=== PATIENT | male | born 1955 | race Caucasian/White ===

== ENCOUNTER 2019-08-18 23:20 | Observation (INO) | payer MEDICARE, SELFPAY ==
--- NOTE | ~2019-08-18 | XR_ITS ---
EXAMINATION: XR lumbar spine 2-3V DATE: 08/19/2019 13:31 INDICATION: Back pain and unable to bear weight TECHNIQUE: Anteroposterior and lateral views of the lumbar spine, and cone-down lateral view of the l umbosacral junction were obtained. COMPARISON: None. FINDINGS: Hypoplastic bilateral riblets at T12 and partially sacralized S1 segment. Alignment is normal. Verteb ral body heights are normal. Mild disc height loss at L4-L5. Mild degenerative endplate osteophytes w ith relatively preserved disc spaces at T12-L1 and L1-L2. Mild lumbar facet osteoarthritis. Sacrum an d bilateral sacral iliac joints are unremarkable. Normal bowel gas pattern. IMPRESSION: 1. Minimal to mild lumbar spondylosis. No acute osseous abnormality. Reviewed, dictated and finalized at location A.
[2019-08-18 23:38] VITALS: BP 144/88; PULSE 58; RESP 18; TEMP 37.1; O2SAT 96
--- NOTE | 2019-08-18 23:57 | ED.BACK ---
HPI - Back Pain/Injury General Chief Complaint: Back Pain/Injury Stated Complaint: Lower Back pain Source: patient Mode of arrival: EMS Limitations: no limitations History of Present Illness HPI Narrative: 64 y.o. male with CAD, HTN, hyperlipidemia, GERD, depression and anxiety was getting into his truck at 3:30 PM today, 8.5 hours ago, when he experienced a severe, tearing sensation in his lower back. He was able to drive home and go to bed. Pain kept him from getting out of bed. EMS assisted him to get up and onto the transport cart. His pain is #6/10 when not moving. It goes up much higher with any movement. Laying still on his back or side decreases the pain. He denies other associated symptoms. The pain radiates down the back of both thighs, not quite as far as the knees. He has not numbness or weakness in his lower extremities. He has urinated since the injury. He's had similar episodes in the past, the last time was several years ago. He's never gone to the doctor for it before. He took Tylenol after the injury with some improvement. There is no hx of cancer or fever/chills. Related Data Home Medications Medication Instructions Recorded Confirmed aripiprazole 2 mg PO DAILY 08/18/19 08/18/19 aspirin 81 mg PO DAILY 08/18/19 08/18/19 atorvastatin 40 mg PO DAILY 08/18/19 08/18/19 bupropion HCl 150 mg PO DAILY 08/18/19 08/18/19 carvedilol 6.25 mg PO BID 08/18/19 08/18/19 clonazepam 0.5 mg PO HS 08/18/19 08/18/19 clopidogrel 75 mg PO DAILY 08/18/19 08/18/19 escitalopram oxalate 20 mg PO DAILY 08/18/19 08/18/19 lisinopril 5 mg PO DAILY 08/18/19 08/18/19 pantoprazole 40 mg PO DAILY 08/18/19 08/18/19 prazosin 4 mg PO HS 08/18/19 08/18/19 spironolactone 25 mg PO DAILY 08/18/19 08/18/19 tamsulosin 0.4 mg PO DAILY 08/18/19 08/18/19 Allergies Allergy/AdvReac Type Severity Reaction Status Date / Time codeine Allergy Unknown Verified 05/19/20 23:37 Review of Systems Constitutional: Constitutional: Reports no additional constitutional complaints, Denies chills and Denies fever(s) ENT: Denies nasal congestion and Denies sore throat Cardiovascular: Cardiovascular: Denies chest pain Respiratory: Respiratory: Denies cough and Denies dyspnea Gastrointestinal: Gastrointestinal: Denies diarrhea, Denies nausea and Denies vomiting Genitourinary: Genitourinary: Denies urinary incontinence Musculoskeletal: Musculoskeletal: Reports no additional musculoskeletal complaints Integumentary/Breasts: Skin/Breast: Denies rash Neurologic: Denies numbness Psychiatric: Psychiatric: Denies anxiety and Denies depression [facility] Past Medical History Medical History (Updated 08/19/19 @ 00:28 by Paulino Grimes MD) Anxiety Depression GERD (gastroesophageal reflux disease) Hyperlipidemia Hypertension Myocardial infarction Surgical History Surgical History (Updated 08/19/19 @ 00:14 by Paulino Grimes MD) History of vasectomy Family History Family History (Updated 08/19/19 @ 00:16 by Paulino Grimes MD) Mother Diabetes mellitus Father Cancer Social History Social History (Updated 08/19/19 @ 00:17 by Paulino Grimes MD) Smoking status: Never smoker Tobacco type: pipe Alcohol intake: current Drinks per week: 1 Alcohol use details: social, 1 -2 drinks, several times/month. Substance use: never Living arrangements: alone Gender identity (if verbalized by the patient): Male Spiritual care concerns: No Exam Narrative: Exam Narrative: Brought in by ambulance. Difficulty transferring to hospital stretcher secondary to pain. Const: Orientation/consciousness: patient oriented x3 Other: Appears in pain. Chest: Chest palpation & inspection: normal inspection of the chest Resp: Effort & Inspection: normal respiratory effort Cardio: Rate: regular rate Rhythm: regular rhythm GI: Inspection: non-distended Other: nontender : General: Yes no CVA tenderness Male General Exam: Yes jose de jesus
[2019-08-18] MEDS: CYCLOBENZAPRINE HCL 10 MG TABLET PO (23:59)
[2019-08-19 00:29] VITALS: BP 150/90; PULSE 89; RESP 20; TEMP 36.4; O2SAT 98
--- NOTE | 2019-08-19 00:56 | PC.NURSE ---
0045 Attempted to assist pt. out of bed to w/c for d/c home. Pt. unable to lift self from bed or even move to try to bear wt. Pt. shaking/trembling in pain and unable to move safely. ERP to write orders for 23 hr. obs. and PT eval in am.
--- NOTE | 2019-08-19 01:20 | ADMGEN ---
This patient, Irving Torres, was admitted to 2nd Floor Room 226-2. Patient oriented to hospital policies and general routines including ID bracelet, bed and alarms, visiting hours, pain management, procedures, bathroom and other care routines, personal items, smoking policy, room service/diet, and visiting hours. Valuables list has been completed. Information on how to activate the Rapid Response Team has been discussed. Patient encouraged to report perceived risks to care and to ask questions if they do not understand what they are told or what they should do.
[2019-08-19 01:25] VITALS: BMI 39.8
[2019-08-19 01:30] VITALS: BP 157/84; PULSE 49; RESP 18; TEMP 36.6; O2SAT 94
[2019-08-19 01:57] VITALS: RESP 18
--- NOTE | 2019-08-19 02:13 | PC.NURSE ---
Patricia from [facility] pharmacy called and stated she will wait to verify the Lovenox until after morning labs to ensure kidney function. she is waiting to verify Prazosin because the pt is also on Tamulosin and both meds are in the same class.
--- NOTE | 2019-08-19 02:40 | PC.NURSE ---
pt sleeping, respirations even and regular, no evidence of distress noted at this time
--- NOTE | 2019-08-19 03:58 | PC.NURSE ---
pt sleeping, no evidence of distress noted
[2019-08-19] MEDS: CYCLOBENZAPRINE HCL 10 MG TABLET PO ×3 (05:30→21:04)
[2019-08-19 05:33] LABS: Basophils Absolute Auto 0.02 K/mm3 (0.00-0.10); Basophils Percent Auto 0.3 % (0.0-1.0); Eosinophils Absolute Auto 0.19 K/mm3 (0.02-0.50); Eosinophils Percent Auto 2.6 % (1.0-6.0); Hematocrit 40.6 % (40.0-54.0); Immature Granulocyte Absolute 0.03 K/mm3 (0.00-0.00); Immature Granulocyte Percent A 0.4 % (0.0-0.0); Lymphocytes Absolute Auto 2.04 K/mm3 (1.10-4.50); Lymphocytes Percent Auto 28.3 % (18.0-42.0); Mean Corpuscular HGB Conc 34.5 g/dL (32.0-36.0); Mean Corpuscular Hemoglobin 29.9 pg (27.0-31.0); Mean Corpuscular Volume 86.8 fL (78.0-102.0); Mean Platelet Volume 8.9 fl (8.7-11.0); Monocytes Absolute Auto 0.54 K/mm3 (0.10-0.90); Monocytes Percent Auto 7.5 % (2.0-11.0); Neutrophils Absolute Auto 4.4 K/mm3 (1.7-7.2); Neutrophils Percent Auto 60.9 % (50.0-70.0); Platelet Count Result 176 K/mm3 (150-420); Red Blood Count 4.68 M/mm3 (4.70-6.10); Red Cell Distribution Width 12.6 % (11.6-14.4); White Blood Count 7.2 K/mm3 (4.8-10.8)
[2019-08-19 05:41] LABS: Anion Gap 11.5 mmol/L (7-16); Blood Urea Nitrogen 15 mg/dL (7-18); Calcium 8.2 mg/dL (8.5-10.1); Carbon Dioxide 28 mmol/L (21-32); Chloride 110 mmol/L (98-108); Estimated CRCL calculation 87 ml/min; Estimated Glomerular Filt Rate > 60; Glucose 105 mg/dL (70-99); Magnesium 1.8 mg/dL (1.8-2.4); Osmolality Calculated 302 mOsm/kg (285-295); Potassium 3.5 mmol/L (3.5-5.1); Sodium 146 mmol/L (136-145)
--- NOTE | 2019-08-19 05:48 | PC.NURSE ---
pt resting in bed, denies need for any pain medication at this time.
[2019-08-19 06:34] LABS: Erythrocyte Sedimentation Rate 5 mm/hr (0-20)
[2019-08-19 07:24] VITALS: BP 140/80; PULSE 54; RESP 14; TEMP 36.4; O2SAT 95
[2019-08-19] MEDS: carvediloL 6.25 MG TABLET PO (08:01)
[2019-08-19] MEDS: ESCITALOPRAM OXALATE 10 MG TABLET 20 MG PO (08:02)
[2019-08-19] MEDS: PANTOPRAZOLE 40 MG TABLET PO (08:02)
[2019-08-19] MEDS: SPIRONOLACTONE 25 MG TABLET PO (08:02)
[2019-08-19] MEDS: lisinopriL 5 MG TABLET PO (08:02)
[2019-08-19] MEDS: CLOPIDOGREL BISULFATE 75 MG TABLET PO (08:03)
[2019-08-19] MEDS: ATORVASTATIN 40 MG TABLET PO (08:03)
[2019-08-19] MEDS: ENOXAPARIN 40 MG/0.4 ML SYRINGE SUB-Q (08:03)
[2019-08-19] MEDS: TAMSULOSIN HCL 0.4 MG CAPSULE PO (08:03)
[2019-08-19] MEDS: ASPIRIN 81 MG ENTERIC TABLET PO (08:04)
[2019-08-19] MEDS: buPROPion HCL XL (24 HR) 150 MG TABCR PO (08:20)
[2019-08-19] MEDS: ARIPIPRAZOLE 2 MG TABLET PO (10:43)
--- NOTE | 2019-08-19 10:47 | PHAR ---
08/19/19: VERIFIED WITH [facility] PT TAKES BOTH PRAZOSIN AND TAMSULOSIN, AND DOSE OF ARIPRAZOLE IS 2MG DAILY. TLS
[2019-08-19] MEDS: KETOROLAC 30 MG/ML VIAL (*BKC) (12:48)
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
--- NOTE | 2019-08-19 13:14 | PC.NURSE ---
Patient to xray per stretcher for xrays of lumbar spine.
[2019-08-19 13:59] LABS: Prostate Specific Antigen 6.3 ng/mL (< OR = 4.0)
[2019-08-19] MEDS: methylPREDNISolone SOD SUCC 125 MG VIAL IV PUSH (14:29)
[2019-08-19 16:00] VITALS: BP 155/81; PULSE 51; RESP 18; TEMP 37.1; O2SAT 93
--- NOTE | 2019-08-19 20:39 | PC.NURSE ---
pt appears to be sleeping, no s/sx of distress at this time, breathing calm and unlabored
[2019-08-19] MEDS: CLONAZEPAM 0.5 MG TAB PO (21:03)
[2019-08-19] MEDS: PRAZOSIN HCL 1 MG CAPSULE 4 MG PO (21:03)
[2019-08-19 21:06] VITALS: PULSE 51
--- NOTE | 2019-08-19 21:08 | PC.NURSE ---
pt awake , resting in bed, no s/sx of distress, pt declines any pain medicine at this time, dr notified of carvedilol being held for low pulse
[2019-08-20] VITALS: BP 131/77; PULSE 57; RESP 18; TEMP 37.6; O2SAT 95
[2019-08-20] MEDS: CYCLOBENZAPRINE HCL 10 MG TABLET PO (05:21)
[2019-08-20 05:31] LABS: Hemoglobin 13.7 g/dL (14.0-18.0); Mean Corpuscular HGB Conc 34.3 g/dL (32.0-36.0); Mean Corpuscular Hemoglobin 29.8 pg (27.0-31.0); Mean Corpuscular Volume 87.1 fL (78.0-102.0); Mean Platelet Volume 9.3 fl (8.7-11.0); Platelet Count Result 188 K/mm3 (150-420); Red Blood Count 4.59 M/mm3 (4.70-6.10); Red Cell Distribution Width 12.5 % (11.6-14.4); White Blood Count 11.6 K/mm3 (4.8-10.8)
[2019-08-20 05:46] LABS: Alanine Aminotransferase 20 U/L (16-63); Albumin Level 3.2 g/dL (3.4-5.0); Alkaline Phosphatase 73 U/L (46-116); Anion Gap 12.9 mmol/L (7-16); Aspartate Amino Transferase 14 U/L (15-37); Bilirubin,Total 0.5 mg/dL (0.00-1.00); Blood Urea Nitrogen 28 mg/dL (7-18); Calcium 8.7 mg/dL (8.5-10.1); Carbon Dioxide 26 mmol/L (21-32); Chloride 110 mmol/L (98-108); Estimated CRCL calculation 77 ml/min; Estimated Glomerular Filt Rate > 60; Glucose 151 mg/dL (70-99); Osmolality Calculated 308 mOsm/kg (285-295); Potassium 3.9 mmol/L (3.5-5.1); Sodium 145 mmol/L (136-145); Total Protein 6.1 g/dL (6.4-8.2)
[2019-08-20 07:45] VITALS: BP 127/69; PULSE 64; RESP 18; TEMP 37; O2SAT 95
[2019-08-20] MEDS: ENOXAPARIN 40 MG/0.4 ML SYRINGE SUB-Q (09:30)
[2019-08-20 09:31] VITALS: PULSE 64
[2019-08-20] MEDS: ASPIRIN 81 MG ENTERIC TABLET PO (09:31)
[2019-08-20] MEDS: CLOPIDOGREL BISULFATE 75 MG TABLET PO (09:31)
[2019-08-20] MEDS: TAMSULOSIN HCL 0.4 MG CAPSULE PO (09:31)
[2019-08-20] MEDS: buPROPion HCL XL (24 HR) 150 MG TABCR PO (09:31)
[2019-08-20] MEDS: carvediloL 6.25 MG TABLET PO (09:31)
[2019-08-20] MEDS: predniSONE 40 MG, predniSONE 10 MG 50 MG PO (09:32)
[2019-08-20] MEDS: ATORVASTATIN 40 MG TABLET PO (09:33)
[2019-08-20] MEDS: PANTOPRAZOLE 40 MG TABLET PO (09:33)
[2019-08-20] MEDS: ESCITALOPRAM OXALATE 10 MG TABLET 20 MG PO (09:33)
[2019-08-20] MEDS: SPIRONOLACTONE 25 MG TABLET PO (09:33)
[2019-08-20] MEDS: ACETAMINOPHEN 325 MG TABLET 650 MG PO (09:33)
[2019-08-20] MEDS: lisinopriL 5 MG TABLET PO (09:33)
[2019-08-20] MEDS: ARIPIPRAZOLE 2 MG TABLET PO (09:34)
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
== END 2019-08-20 10:30 | disposition home or self-care (01) ==
LOC: CHSED 08-19 00:47 → CHS2ND 08-19 07:20
PROVIDERS: Family Medicine; Nurse Practitioner; Admitting Provider Family Medicine; Emergency Provider Family Medicine; Visit Provider Family Medicine
DX: M54.5 Low back pain (principal); I25.10 Atherosclerotic heart disease of native coronary artery without angina pectoris; I10 Essential (primary) hypertension; K21.9 Gastro-esophageal reflux disease without esophagitis; E78.5 Hyperlipidemia, unspecified; F32.9 Major depressive disorder, single episode, unspecified; F41.9 Anxiety disorder, unspecified; N40.0 Benign prostatic hyperplasia without lower urinary tract symptoms; I25.2 Old myocardial infarction
CPT/HCPCS: 36415; 72100; 80048; 80053; 83735; 84153; 85025; 85027; 85652; 96372; 96374; 96375; 97110; 97161; 97530; 99284; 99285; A9270; G0378; J1650; J1885; J2930; J7512

== ENCOUNTER 2019-08-31 14:03 | Outpatient (RCR) | payer MEDICARE, MEDICAID, SELFPAY ==
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
--- NOTE | 2019-10-08 07:15 | PTOPEVAL ---
Thank you for referring Irving Torres to [facility]. Please review, sign, date and return this plan of care AARON. I agree with and certify that the following plan of care is medically necessary. Referring Physician Date Admitting Provider: Attending Provider: PHYSICIAN NOT ON STAFF Referring Provider: *PT Outpatient Evaluation Start: 08/31/19 14:03 Freq: Status: Active Protocol: Document 09/30/19 15:00 Robyn (Rec: 10/07/19 21:37 [facility] [id number]) Therapy Assessment Status Assessment Status Assessment Status Re-evaluation Outpatient Past Medical History Cardiovascular History Hx Coronary Stent Yes Hx Hypercholesterolemia Yes Hx Hypertension Yes Gastrointestinal History Hx Gastroesophageal Reflux Disease Yes Genitourinary History Hx Other Genitourinary Disorders Yes: Prostatits Musculoskeletal History Hx Back Pain Yes Reproductive History Hx Other Reproductive Disorders Yes: vasectomy Psychosocial History Hx Depression Yes Other History Hx Other Surgeries Yes: vasectomy Evaluation Information Problem Diagnosis low back pain Subjective Information patient reports he is feeling Query Text:As Reported By Patient/ great this date. he reports Family over the past week he has noticed a great reduction in his pain. he reports he is really happy with his activity tolerance lately, but still feels a bit weak in the LE's. he reports he would like to continue skilled PT to achieve his full goals and return to his full prior level functional activity performance/quality of life. Pain Assessment Timing of Pain Assessment Timing of Pain Assessment Assessment Pain Scale Pain Scale Used Numeric (1 - 10) Self Report Pain Assessment Right Calf/Calves Reported Pain Level 1 Greatest Pain Intensity 4 Lower Back Reported Pain Level 1 Greatest Pain Intensity 4 Pain Score Pain Score 1,1: Self Report Cervical and Lumbar ROM Lumbar ROM Lumbar Flexion Active Mid Valles,Ankle Query Text:Hands to: Lumbar Extension (0-40) 10 Query Text:Active in Degrees Lumbar Lateral Flexion Right (0-40) 30 Query Text:Active in Degrees Lumbar Lateral Flexion Left (0-40) 30 Query Text:Active in Degrees Lumbar Comments pain still increased in the
== END 2019-11-11 16:41 | disposition home or self-care (01) ==
LOC: CHSPT 14:03
DX: M54.5 Low back pain (principal)
CPT/HCPCS: 97012; 97014; 97110; 97140; 97161; G0283

== ENCOUNTER 2021-03-08 11:00 | Outpatient (RCR) | payer MEDICARE, MEDICAID, SELFPAY | END 2021-03-08 14:44 | disposition home or self-care (01) | DX: Z98.61 Coronary angioplasty status (principal); I25.2 Old myocardial infarction | CPT/HCPCS: 93798 ==